=== PATIENT | male | born 1960 | race Caucasian/White ===

== ENCOUNTER 2017-06-25 14:54 | Inpatient (IN) | payer BC ==
[~2017-06-25] VITALS: Ht 167.6 cm; Wt 206.1 kg
--- NOTE | ~2017-06-25 | EKG ---
[facility] [address] [place], [place] [address] Draft EK completed, results pending confirmation PATIENT NAME: JOSEEMELY Electrocardiogram DATE OF : 62 PHYSICIAN: PRELIMINARY REPORT #: [id number] REPORT IS CONFIDENTIAL AND NOT TO BE RELEASED WITHOUT AUTHORIZATION
[~2017-06-25 14:54] MED LIST: AMLODIPINE BESY10 MG PO; ASPIRIN325 MG PO; AUGMENTIN 500-500 MG PO; CHONDROITIN SU100 G1 MC; CLARITIN10 MG PO; DOXAZOSIN MESYLA4 MG PO; ELIQUIS5 MG PO; FISH OIL500 MG PO; GARLIC1 EAC1 PO; GLUCOS-CHOND 51 EACH PO; KLOR-CON M2020 MEQ PO; LEVAQUIN500 MG PO; LIPITOR40 MG PO; LISINOPRIL-HCT1 EAC1 PO; LISINOPRIL10 MG PO; LISINOPRIL20 MG PO; METOPROLOL SUC200 MG PO; NORVASC10 MG PO; POTASSIUM CHLO20 ME1 PO; TOPROL XL50 MG PO; TORSEMIDE20 MG PO
--- NOTE | 2017-06-25 19:45 | NUR ---
PT FIFTED WITH TERRA AND 4 PERSON ASSIST TO SLIDE TO BARIATRIC BED. PT TOLERATED WELL. PT SHIFT REPORT RECIEVED. ALL QUESTIONS ANSWER. CALL LIGHT IN HAND. WILL CONTINUE TO MONITOR.
--- NOTE | 2017-06-25 20:15 | NUR ---
PT RESTING IN BED. PT ASSESSMENT COMPELTED. PT LUNGS CLEAR IN UPPER DIMINISED IN LOWER. PT ON 4L NC. PT TOLERATING WELL. RT IN TO SET UP HOME CPAP. PER RT HOME CPAP MACHINE IS NOT ADEQUATE TO USE DURING THE PTS STAY. PT WILL USE HOSPITAL PROVIDED CPAP MACHINE DURING HIS STAY. PT IS OKAY WITH THIS PLAN. PT SKIN IS VERY DRY ESPEACIALLY ON LEGS/ANKLES. SKIN IS DISCOLORED ON LEGS. PT SCROTUM ARE VERY SWOLLEN. PT IS ABLE TO URINATE WELL AT THIS TIME. PT IS ON A FLUID RESTRICTION AT THIS TIME.
--- NOTE | 2017-06-25 20:51 | NUR ---
ENTERED ROOM TO DISCUSS MEDICATION FOR TONIGHT. PT EDUCATION PROVIDED. PT WAS RELAXING IN BED ON PT HOME IPAD. WILL CONTINUE TO MONITOR.
--- NOTE | 2017-06-25 23:00 | NUR ---
PT CALLED TO USE URINAL. ASSISTED WITH URINAL WITH NO ISSUES. PT TOELRATED WELL. PT THEN PLACED ON CPAP MACHINE. PT EDUCATED TO CALL IF ANY ISSUES OR WHEN HE NEEDS TO URINATE AGAIN. NO OTHER ISSUES AT THIS TIME. CALL LIGHT IN REACH.
--- NOTE | 2017-06-26 02:00 | NUR ---
PT RESTING IN BED. LISTENED TO BREATH SOUNDS. NO CHANGES FROM PREVIOUS ASSESSMENT. PT USED URINAL WITH NO ISSUES. REPOSITIONED IN BED WITH LIFT. PT TOLERATED WELL. WILL CONTINUE TO MONITOR.
--- NOTE | 2017-06-26 04:00 | NUR ---
PT RESTING IN BED ON CPAP MACHINE. PT TOLERATING WELL. CALL LIGHT IN REACH. WILL CONTINUE TO MONITOR.
--- NOTE | 2017-06-26 06:55 | NUR ---
MD IN TO TALK WITH PT THIS AM. PT BACK TO SLEEP WITH CPAP AND CALL LIGHT IN REACH. WILL CONTINUE TO MONITOR.
--- NOTE | 2017-06-26 07:35 | NUR ---
PT DENIES PAIN AT THIS TIME, ALERT AND ORIENTED X4. PT READY TO ATTEMPT TO GET UP TO THE COMMODE.
--- NOTE | 2017-06-26 07:45 | NUR ---
PT AMBULATED TO BATHROOM WITH TWO PERSON ASSIST AND WALKER. PT SITTING ON TOILET, CALL LIGHT WITHIN REACH, NC O2 IN PLACE, PT STATES "I MIGHT NEED A LITTLE TIME". HR IN 100-110'S WITH ACTIVITY.
--- NOTE | 2017-06-26 08:05 | NUR ---
PT USED CALL LIGHT FOR ASSISTANCE, STOOD UP AND WINDOW REPAIRER CLEANED BACKSIDE, THEN PT STATES "I NEED TO GET BACK ON THE TOILET, I JUST CRAPPED A LITTLE". PT BACK ON TOILET WITH SMALL AMOUNT VIOLENT DIARRHEA. PT HAS CALL LIGHT WITHIN REACH, STATES "I'LL SIT HERE A LITTLE WHILE".
--- NOTE | 2017-06-26 09:11 | NUR ---
IV SITE INTACT, NO SWELLING OR REDNESS NOTED, PT DENIES PAIN WITH FLUSH, FLUSHES EASILY. PT HAS BREAKFAST TRAY. SITTING UP IN BED WATCHING TV AND EATING.
--- NOTE | 2017-06-26 10:03 | NUR ---
PT SITTING IN BED WATCHING TV AT THIS TIME, PT ABLE TO EAT 100% OF BREAKFAST. WOB HAS DECREASED.
--- NOTE | 2017-06-26 10:10 | NUR ---
NYSTOP POWDER APPLIED TO SKIN FOLDS, GROIN AREA, AND UNDER PANUS.
--- NOTE | 2017-06-26 10:20 | NUR ---
PT WASHED HANDS AND FACE WITH WARM WET WASH CLOTH. CLEANED PT GLASSES.
--- NOTE | 2017-06-26 10:28 | NUR ---
PT UP OUT OF BED AMBULATED TO TOILET WITH WALKER AND TWO PERSON ASSIST. PT HAVING VIOLENT LIQUID STOOL.
--- NOTE | 2017-06-26 10:47 | NUR ---
PT BACK TO BED, WOB INCREASED WITH ACTIVITY, PT AMBULATING BETTER THAN WHEN FIRST UP THIS MORNING. PT DENIES PAIN. PT HAS DIFFICULTY GETTING BACK INTO BED, TWO PERSON ASSIST WITH A STOOL. PT TESTICLE EDEMA INHIBITS MOBILITY.
--- NOTE | 2017-06-26 11:26 | NUR ---
PT VOIDED LARGE AMOUNT, MOST LEAKING AROUND URINAL.
--- NOTE | 2017-06-26 12:46 | NUR ---
IV SITE INTACT, NO REDNESS OR SWELLING NOTED AT SITE, PT DENIES PAIN WITH FLUSH, SITE FLUSHES EASILY. PT ALERT AND ORIENTED X4. PT DENIES NAUSEA AND PAIN IN GENERAL. PT STATES WOB IS STILL ELEVATED ABOVE BASELINE. PT STATES HIS FEET FEEL LESS SWOLLEN.
--- NOTE | 2017-06-26 14:26 | NUR ---
PT VOIDED USING URINAL, MODERATE AMOUNT OF LEAKING AROUND URINAL NOTED. PT ALSO GIVEN 2 GM PO IMODIUM FOR SIGNIFICANT LOOSE STOOL. PT DENIES PAIN AND NAUSEA AT THIS TIME.
--- NOTE | 2017-06-26 15:19 | NUR ---
SPOKE WITH PATIENT IN ROOM. PATIENT STATES HE PICKED UP HIS MEDICATIONS AT PHARMACY AND SOME WERE NOT REFILLED. THEY TOLD HIM HE NEEDED TO CONTACT THE PROVIDER TO REFILL. HE STATED IT WAS GOING INTO THE WEEKEND AND COULD NOT REACH THE DOCTOR. HE KNOWS NO BARRIERS TO RETURNING HOME ALONE TO APARTMENT. STATES HIS SISTER IS CLOSE-BY IF HE NEEDS HELP. WE DISCUSSED POSSIBLY HAVING CHW FROM CLINIC WORK WITH HIM TO HELP HIM NAVIGATE PHARMACY AND ANY SERVICES NEEDED. HE IS IN AGREEMENT WITH THIS. DISCUSSED STAFF CONCERN THAT HIS CPAP IS OLD AND HAS DUCT TAPE. HE STATES HIS REGULAR MACHINE QUIT WORKING AND THIS ONE IS AN OLDER ONE. DISCUSSED THAT HIS INSURANCE MOST LIKELY WILL REPLACE A MACHINE OLDER THAN 5 YEARS. HE STATES HE WOULD LIKE HELP WITH THIS, TOO. CALLED HIS PCP OFFICE AND SPOKE WITH BARTOLO OLVERA AT [facility]. WE DISCUSSED HIS CPAP ISSUES AND HIS MEDICATION ISSUES. SHE WILL COME SEE PATIENT IN THE ROOM AND START FOLLOW UP WITH HIM AT HOME AT DISCHARGE. SHE WILL ALSO SPEAK WITH DR REMY ABOUT ORDERS FOR IN-HOME MEDICAL REGARDING CPAP REPLACEMENT ISSUE. STAFF AND PATIENT UPDATED.
--- NOTE | 2017-06-26 17:18 | NUR ---
WENT IN ROOM TO ASSIST PATIENT WITH USING URINAL. PATIENT EXPERIENCED SUDDEN BOUT OF NAUSEA, PATIENT GIVEN SICK BAG AND NURSE WAS NOTIFIED.
--- NOTE | 2017-06-26 18:40 | NUR ---
PT C/O ABD CRAMPING AND DISCOMFORT. PT NOT ABLE TO EAT AND DINNER HE IS FEELING SLIGHTLY NAUSEATED. ZOFRAN GIVEN AT 1700. PT SAT UP AT SIDE OF BED, ABLE TO BELCH SEVERAL TIMES, STATES HE FEELS SOME RELIEF. PT AMBULATED TO THE TOILET WITH ASSISTANCE FROM WALKER AND STAND BY ASSIST. PT ABLE TO PASS LARGE AMOUNT OF FLATUS AND MODERATE AMOUNT OF LIQUID STOOL. PT STATES HE FEELS "MUCH BETTER". BED LINENS CHANGED, PT BACK TO BED, CALL LIGHT WITHIN REACH. PT ALERT AND ORIENTED X4.
--- NOTE | 2017-06-26 19:45 | NUR ---
PT REPORT RECIVED FROM DAY SHIFT RN. ALL QUESTIONS ANSWERED. PT RESTING IN BED AT THIS TIME. WILL CONTINUE TO MONITOR.
--- NOTE | 2017-06-26 20:30 | NUR ---
PT SHIFT ASSESSMENT COMPELTED. PT RESTING IN BED. LUNGS CLEAR AND DIMINISHED. PT CURRENTLY ON 5L NC. PT WILL USE CPAP TONIGHT. BOWEL TONES ACTIVE AT THSI TIME. WILL CONTINUE TO MONITOR.
--- NOTE | 2017-06-26 21:15 | NUR ---
PT FOLDS CLEANED AND RIED AND PLACED NYSTATIN WHERE APPLICABLE. PT TOLERATED WELL. 2 RNS IN TO ASIST WITH THIS TASK. NO OTHER ISSUES AT THIS TIME. CALL LIGHT IN REACH. WILL CONTINUE TO MONITOR.
--- NOTE | 2017-06-26 22:00 | NUR ---
ASSISTED PT WITH URINAL. UNABLE TO COLECT URINE IN CONTAINER. URINE SPILLED ONTO CHUCKS PAD. NO OTHER ISSUES AT THIS ITME. WILL CONTINUE TO MONTIOR.
--- NOTE | 2017-06-26 22:59 | NUR ---
IN TO ASSIST PT ADJUST IN BED. PT WAS ABLE TO ADJUST SELF IN BED WITH LITTLE NURSING STAFF ASSISTANCE. PT STATES HE FEELS BETTER THAN WHEN HE WAS ADMITTED AND LESS SOB. NO OTHER ISSUES AT THIS TIME WILL CONTINUE TO MONTIOR.
--- NOTE | 2017-06-27 00:20 | NUR ---
pt called to be placed on cpap machine. removed nc and placed on cpap. pt tolerated well. call light in hand. bed in lowest position. no other isues at this time. will continue to monitor.
--- NOTE | 2017-06-27 02:00 | NUR ---
PT RESTING IN BED ON CPAP AT THIS TIME. WILL CONTINUE TO MONITOR AT THIS TIME. PT OXYGEN 99% ON CPAP AT THIS ITME. CALL LIGHT IN HAND.
--- NOTE | 2017-06-27 04:00 | NUR ---
PT RESTING IN BED. CALL LIGHT IN HAND. BED IN LOWEST POSITION. WILL CONTINUE TO MONITOR.
--- NOTE | 2017-06-27 07:30 | NUR ---
BEDSIDE REPORT RECIEVED.
--- NOTE | 2017-06-27 07:50 | NUR ---
DR. MARES HERE TO SEE PATIENT. O2 DECREASED FROM 5 L TO 2.5 LITERS VIA NC. WILL CONTINUE TO MONITOR O2 SATS.
--- NOTE | 2017-06-27 08:00 | NUR ---
awake, ASSESSMENT DONE. DENIES PAIN. TALKED WITH PATIENT ABOUT PLAN OF CARE FOR DAY, IS UNDERSTANDING. SITTING UP IN BED FOR BREAKFAST, MEDS GIVEN.
--- NOTE | 2017-06-27 08:30 | NUR ---
TOOK BREAKFAST WELL.
--- NOTE | 2017-06-27 09:00 | NUR ---
NAPPING WITH CPAP ON. NO DISTRESS NOTED.
--- NOTE | 2017-06-27 10:45 | NUR ---
to shower via shower chair. QA ANALYST GIVING SHOWER.
--- NOTE | 2017-06-27 11:15 | NUR ---
TOLERAED SHOWER FAIR. RR-30'S. BACK TO BED WITH USE OF OVERHEAD LIFT. CPAP APPLIED.
--- NOTE | 2017-06-27 12:30 | NUR ---
TRANSFER ORDERS RECIEVED. WILL REMAIN IN ICU HOUSE CONVEN FOR NOW.
--- NOTE | 2017-06-27 15:10 | NUR ---
AMBULATED TO BR TO BRUSH TEETH AND SHAVE. TOLERATED AMBULATION WELL. THEN TO CHAIR. DENIES INCREASED SHORTNESS OF BREATH. O2 SAT UPON RETURN TO CHAIR 85%. O2 AT 3LNC AFTER RECOVERY PERIOD OF 1 MIN O2 SAT TO 92.
--- NOTE | 2017-06-27 15:30 | NUR ---
PHYS THERAPY HERE TO WORK WITH PATIENT. AMBULATED PATIENT IN HALLWAY FOR 6 MIN. O2 SAT TO 89%, HR TO 30'S. DENIES INCREASED SHORTNESS OF BREATH.
--- NOTE | 2017-06-27 16:15 | NUR ---
RESTFUL IN CHAIR.
--- NOTE | 2017-06-27 16:35 | NUR ---
RECIEVING AERSOL [place] ON . SPOT CHECK SAT=77-79. O2 AT 3 LITERS APPLIED. DENIES FEELING SHORT OF BREATH.
--- NOTE | 2017-06-27 16:40 | NUR ---
REPORT GIVEN TO MED SURG.
--- NOTE | 2017-06-27 16:50 | NUR ---
AMBULATED TO MED-SURG ROOM 111 FROM 127. IS SHORT OF BREATH WITH EXERTION, STATES THIS IS ABOUT THE SAME WHEN AT HOME.
--- NOTE | 2017-06-27 17:04 | NUR ---
PT ABLE TO AMBULATE LENGTH OF ADKINS FROM CCU TO 111. PT SOB, BUT STATES NO MORE THAN HE WAS RESTING. PT SITTING IN CHAIR. ABLE TO TALK AND ANSWER QUESTIONS WITHOUT DIFFICULTY.
--- NOTE | 2017-06-27 17:20 | NUR ---
DR. MARES AWARE OF U/O AND O2 SAT ON RA. NO FUTHER ORDERS AT THIS TIME.
--- NOTE | 2017-06-27 17:56 | NUR ---
PT TO FLOOR THIS AFTERNOON, ABLE TO AMBULATE DOWN ADKINS. EDEMA FROM UMBILICUS DOWN. 1800 FLUID RESTRICTION. UO QS. MISSESS HAT THOUGH. CPAP AT NIGHT. 3L NC.
--- NOTE | 2017-06-27 18:15 | NUR ---
PT IS SITTING UP IN CHAIR WITH CALL LIGHT IN REACH. PT ASKED FOR HIS FREE WATER, WAS GIVEN 300ML.
--- NOTE | 2017-06-27 19:05 | NUR ---
RECEIVED REPORT FROM RN. PATIENT DENIES NEEDS AT THIS TIME.
--- NOTE | 2017-06-27 20:18 | NUR ---
SHIFT ASSESSMENT DONE, EVENING MEDICATIONS GIVEN. PATIENT IS RESTING COMFORTABLY IN BED. BREATHING IS EVEN AND UNLABORED, CURRENTLY ON 3L O2 VIA NC. CALL LIGHT WITHIN REACH.
--- NOTE | 2017-06-27 21:44 | NUR ---
ASSISTED PATIENT TO THE BATHROOM AND BACK TO BED. USING WALKER. REFUSED TO TO ORAL CARE.
--- NOTE | 2017-06-27 23:30 | NUR ---
PATIENT PUT ON CPAP. HE DENIES OTHER NEEDS AT THIS TIME. CALL LIGHT WITHIN REACH.
--- NOTE | 2017-06-28 01:35 | NUR ---
PATIENT RESTING COMFORTABLY IN BED. BREATHING IS EVEN AND UNLABORED. CPAP ON, CALL LIGHT WITHIN REACH.
--- NOTE | 2017-06-28 02:23 | NUR ---
PATIENT AMBULATED TO THE BATHROOM WITH SBA/FWW. HE EXHIBITED EXERTIONAL TACHYPNEA, WHICH QUICKLY RESOLVED ONCE BACK IN BED. PATIENT IS NOW RESTING COMFORTABLY IN BED, CPAP ON, CALL LIGHT WITHIN REACH. BREATHING IS EVEN AND UNLABORED.
--- NOTE | 2017-06-28 04:49 | NUR ---
PATIENT IS RESTING COMFORTABLY IN BED. BREATHING IS EVEN AND UNLABORED ON CPAP. CALL LIGHT WITHIN REACH.
--- NOTE | 2017-06-28 05:13 | NUR ---
PATIENT'S NIGHT HAS BEEN UNEVENTFUL. HE HAS BEEN RESTING THROUGHOUT SHIFT. VSS, NO COMPLAINTS OF PAIN. PATIENT IS TOELRATING AMBULATION WITH A 1PA/FWW. THERE WERE NO ACUTE CHANGES FROM BEGINNING OF SHIFT ASSESSMENT.
--- NOTE | 2017-06-28 07:39 | NUR ---
REPORT RECIEVED FROM HUNTER IVEY. PT AWAKE IN BED. STATES HE HAD A GOOD NIGHT. PLACED BACK ON O2 AFTER TAKING OFF CPAP.
--- NOTE | 2017-06-28 10:50 | NUR ---
PT UP TO CHAIR. HR SPIKED TO 138 BUT QUICKLY RECOVERED UPON SITTING. NOW 103.
--- NOTE | 2017-06-28 15:35 | NUR ---
PT CONTINUES TO SIT IN CHAIR. HAS WORKED WITH PHYS. THER. X1 TODAY. TOLERATED WELL. PT DENIES PAIN OR CONCERNS.
--- NOTE | 2017-06-28 16:48 | NUR ---
PT UP TO RESTROOM. TOLERATED WELL ALTHOUGH FEELS HE HAS NOT LOST ANY WEIGHT IN HIS SCROTUM. WEIGHED EARLIER FOR 499.2. ON STANDING SCALE. HELPED BACK INTO BED. FEET DO APPEAR MORE SWOLLEN THIS AFTERNOON.
--- NOTE | 2017-06-28 18:38 | NUR ---
PT SAT IN CHAIR MOST OF DAY. STILL HAS +3 EDEMA ON LOWER HALF OF BODY. WEIGHED ON STANDING, 499.2, UP 7 POUNDS FROM 2 DAYS AGO. STILL SOB WITH AMBULATION. TELE #1.
--- NOTE | 2017-06-28 20:00 | NUR ---
RECEIVED REPORT AT 1900. PT WAS IN THE BATHROOM AT THAT TIME. I DID NOT GET TO MEET HIM.
--- NOTE | 2017-06-28 21:44 | NUR ---
ALL LOBES ARE CLEAR BUT DIMINISHED. PT IS NOT PUTTING MUCH EFFORT INTO DEEP BREATHS WHEN ASKED TO DO SO. SCROTAL EDEMA IS +4, OVERALL EDEMA IS +3 TO +4. V/S ARE WDL, HEART RHYTHM IS STILL IRREGULAR. PT DENIED PAIN AT TIME OF ASSESSMENT.
--- NOTE | 2017-06-29 00:32 | NUR ---
PT IS SLEEPING AT THIS TIME.
--- NOTE | 2017-06-29 03:00 | NUR ---
PT IS SLEEPING AT THIS TIME.
--- NOTE | 2017-06-29 05:31 | NUR ---
PT STARTED SHIFT WITH MILD TACHYCARDIA FROM 100-105 WHICH HAS SUBSIDED SINCE. ALL OTH V/S ARE WDL. PT HAS BEEN WITH A HR OF <100 FOR A FEW HOURS NOW. PT WORE C-PAP ALL NIGHT, I&O ARE WDL, ALL LOBES ARE CLEAR BUT DIMINISHED. PT HOWEVER DOES NOT PUT IN A LOT OF EFFORT WHEN DEEP BREATHING. PT IS STILL ON TELE #1. PT IS WALKING WELL CONSIDERING HIS WEIGHT AND EDEMA. PT DENIES PAIN FOR THIS SHIFT.PT SLEPT MOST OF THE NIGHT. PT SEEMS TO BE DOING WELL OVERALL. NO NEW ISSUES NOTED
--- NOTE | 2017-06-29 08:24 | NUR ---
PT UP TO RESTROOM WITH SBA AND FWW. PT HAS TROUBLE GETTING HIMSELF UP OUT OF SITTING POSITION AND HAS TO TRY SEVERAL TIMES. STATES HE HAS DONE THE SPLITS TRYING TO GET UP BEFORE. BRACED THE FWW WITH FOOT.
--- NOTE | 2017-06-29 08:30 | NUR ---
PT UP TO RESTROOM AND STUBBED TOE ON HIS WALKER ON WAY INTO BATHROOM. WAS BLEEDING SLIGHTLY. ASSESSED AND IT APPEARS TO BE A TORN CUTICLE ON THE INNER SIDE OF THIRD TOE. CLEANED AND PLACED BANDAID. PT DENIES PAIN OR DISCOMFORT.
--- NOTE | 2017-06-29 11:01 | NUR ---
PT UP TO RESTROOM SEVERAL TIMES. URINATES ON FLOOR EVERYTIME. CLEANED UP AND ADVISED TO BE CAREFUL.
--- NOTE | 2017-06-29 11:42 | NUR ---
PT TO RESTROOM AGAIN FOR LARGE QTY OF URINE. BLEEDING APPEARS STOPPED ON TOE AND PT DENIES DISCOMFORT FROM TOE.
--- NOTE | 2017-06-29 13:32 | NUR ---
PT WORKED WITH PHYS. THER. TOLERATED WELL ALTHOUGH COULD NOT DO STAIRS DUE TO ENLARGED SCROTUM AND INABILITY TO USE CANE. SOB INCREASED WITH AMBULATION. PT NOW ON 2L NC AND HOLDING SATS WELL. PT APOLOGIZED TO SECURITY REP FOR BEING CRANKY, STATES HE DOES NOT LIKE DOING IT, ESPECIALLY WHILE SWOLLEN.
--- NOTE | 2017-06-29 14:20 | NUR ---
SPOKE WITH PATIENT IN ROOM. DISCUSSED HIS POSSIBLY NEEDING OXYGEN AT DISCHARGE. HE STATES HE WANTS TO USE IN-HOME MEDICAL. HE ALSO ASKED ABOUT A WALKER. STATES HE DOESN'T HAVE ONE AT HOME. DISCUSSED THAT PT AND MD WILL DECIDE THAT BEFORE DISCHARGE, TOO. NO FURTHER QUESTIONS.
--- NOTE | 2017-06-29 16:09 | NUR ---
TOOK A SHOWER TODAY WASHED HAIR.
--- NOTE | 2017-06-29 17:02 | NUR ---
PT UP TO RESTROOM AGAIN. STATES THAT HIS SWELLING HAS GONE DOWN A LITTLE IN THE SCROTAL AREA. HAS URINATED A LARGE QTY TODAY VS YESTERDAY.
--- NOTE | 2017-06-29 19:10 | NUR ---
SHIFT REPORT RECIEVED. PATIENT RESTING IN BED WATCHING TV. DENIES NEEDS AT THIS TIME. CALL LIGHT IN REACH.
--- NOTE | 2017-06-29 21:15 | NUR ---
EVEING MEDS GIVEN PER ORDER. PATIENT UP TO THE BATHROOM, 1PA W/FWW. PATIENT TOLERATED WELL. PATIENT MAKE IN BED. KATHARINE CARE AND NYSTATIN POWDER APPLIED PER ORDERS. PATIENT DENIES PAIN. PULSE OX 93% ON 2L NC. TELE IN PLACE, HR 85 AT REST. PATIENT'S PANIS FOLDS ARE ONLY SLIGHTLY RED. HIS TESTICALS ARE BRIGHT RED, SHINEY, PAINFUL, AND VERY LARGE. PATIENT HAS DRANK ALL OF HIS 1800MLS OF FLUIDS FOR THE NIGHT. PATIENT RESTING IN BED. DENIES FURTHER NEEDS. CALL LIGHT IN REACH.
--- NOTE | 2017-06-29 23:24 | NUR ---
PATIENT RESTING IN BED. EYES CLOSED. RR 16. CPAP ON. PULSE OX 95%.
--- NOTE | 2017-06-30 03:24 | NUR ---
PATIENT REPORTS THAT CPAP CONTINUES TO ALARM. RT CALLED TO ASSESS. RT STATES THAT THE PATIENT IS NOT BREATHING DEEP ENOUGH OR OFTEN ENOUGH FOR THE LIMITS SET ON THE MACHINE. HE EXPLAINED THIS TO THE PATIENT. PULSE OX, 98% ON CPAP 2L. HOB ELEVATED. CALL LIGHT IN REACH.
--- NOTE | 2017-06-30 04:45 | NUR ---
PATIENT UP TO THE BATHROOM WITH ASSISTANCE FROM [employer]ER. ASSITED BACK TO BED. CPAP ON. CALL LIGHT IN REACH.
--- NOTE | 2017-06-30 05:16 | NUR ---
PATIENT RESTED OFF AND ON THROUGHOUT SHIFT. PATIENT ON PULSE OX, 2L NC DURING THE DAY AND CPAP AT NIGHT. PATIENT IS SBA W/FWW. CONTINUES TO HAVE SEVERE EDEMA. IV AL. CARDIAC DIET WITH 1800ML FLUID RESTRICTION. TOLERATING WELL. TELE #1. RECIEVED IV LASIX YESTERDAY, OUTPUT QS.
--- NOTE | 2017-06-30 06:33 | NUR ---
TELE BATTERY CHANGED. PATIENT RESTING IN BED. CPAP ON. PULSE OX, O2 97%. CALL LIGHT IN REACH.
--- NOTE | 2017-06-30 07:20 | NUR ---
BEDSIDE HANDOFF REPORT RECEIVED FROM MOVIE OPERATOR RN. PT SLEEPING, LEFT UNDISTURBED.
--- NOTE | 2017-06-30 08:00 | NUR ---
PT RESTING IN BED. PT ON ROOM AIR, REMOVED CPAP, O2 SATS 86-88%, PLACED ON 2L NC. LUNG SOUNDS CLEAR ON LEFT, RHONCHI NOTED TO RIGHT, DIMINISHED BASES, ENCOURAGED ACAPPELLA. PT TOLERATING CARDIAC DIET, FOLLOWING FLUID RESTRICTION, BOWEL TONES ACTIVE, DENIES NAUSEA. PT WITH 3+ EDEMA TO BLE AND SCROTUM. PT DENIES PAIN. PLAN TO SHOWER THIS MORNING. DISCUSSED PLAN OF CARE. PT DENIES OTHER NEEDS AT THIS TIME.
--- NOTE | 2017-06-30 08:30 | NUR ---
PT ASSISTED TO CHAIR FROM BATHROOM. PT WITH LARGE LOOSE BM, VOIDED. PT SOB WITH EXERTION. O2 SATS 80% UPON RETURNING TO CHAIR. PT INSTRUCTED TO KEEP OXYGEN IN PLACE WEHN AMBULATING TO BATHROOM.
--- NOTE | 2017-06-30 10:33 | NUR ---
MD TO BEDSIDE TO EVALUATE PT. PLAN TO CONTINUE RECEIVING IV LASIX AND MONITOR FLUID BALANCE. PT DENIES NEEDS AT THIS TIME.
--- NOTE | 2017-06-30 12:05 | NUR ---
PT ASSISED WITH USING URINAL. PT ASSISTED TO CHAIR FOR LUNCH. PT DENIES OTHER NEEDS AT THIS TIME.
--- NOTE | 2017-06-30 14:30 | NUR ---
PT UP TO BATHROOM, VOIDED. PT ASSISTED BACK TO BED. PT LUNG SOUNDS CLEAR WITH FINE CRACKLES TO RLL, ON 2L NC, CONTINUES TO BE SOB WITH EXERTION. EDEMA TO BLE SLIGHTLY IMPROVED. PT RESTING COMFORTABLY. PT DENIES OTHER NEEDS AT THIS TIME.
--- NOTE | 2017-06-30 15:44 | NUR ---
ASSISTED PATIENT WITH USING URINAL. OTHERWISE DOING WELL.
--- NOTE | 2017-06-30 16:45 | NUR ---
PT COMPLETED WORKING WITH OCCUPATIONAL THERAPY. PT RESTING IN BED. PT DENIES NEEDS AT THIS TIME.
--- NOTE | 2017-06-30 17:54 | NUR ---
PT ON 2L NC, DESATS QUICKLY ON ROOM AIR. PT RECEIVED 80 MG IV LASIX X2 TODAY, GOOD URINE OUTPUT. PT UP SBA WITH FWW. SL. PT CONTINUES TO HAVE 2-3+ EDEMA TO BLE AND SCROTUM. PT TOLERATING CARDIAC DIET WITH 1800 ML FLUID RESTRICTION. WORKED WITH PHYSICAL AND OCCUPATIONAL THERAPY. HAD BM TODAY.
--- NOTE | 2017-06-30 19:30 | NUR ---
PT RESTING IN BED. DENIES NEEDS AT THIS TIME, CALL VERMA IN REACH.
--- NOTE | 2017-06-30 19:53 | NUR ---
ASSISTED PT TO THE BATHROOM. PT VOIDING CLEAR, YELLOW. BACK TO BED, CALL VERMA IN REACH.
--- NOTE | 2017-06-30 22:45 | NUR ---
ASSISTED PT TO THE BATHROOM. REFILLED WATER PITCHER. PT BACK TO BED, APPLIED CPAP. PT DENIES FURTHER NEEDS. CALL VERMA IN REACH.
--- NOTE | 2017-07-01 00:30 | NUR ---
PT SLEEPING. CPAP IN PLACE. RT IN ASSESSING. CONT. PULSE OX IN PLACE. CALL VERMA IN REACH.
--- NOTE | 2017-07-01 02:06 | NUR ---
PT UP TO BATHROOM WITH ASSISTANCE. CPAP IN PLACE. CALL VERMA IN REACH.
--- NOTE | 2017-07-01 02:54 | NUR ---
I HAD TO WAKE PT UP TO GIVE HIS CARDIZEM. OBTAINED VS. TOILETING OFFERED. PT DENIES NEEDS. CPAP BACK IN PLACE. CALL VERMA IN REACH.
--- NOTE | 2017-07-01 04:50 | NUR ---
PT SLEEPING. CPAP IN PLACE. CALL VERMA IN REACH.
--- NOTE | 2017-07-01 06:50 | NUR ---
PT SLEEPING. CPAP IN PLACE. CONT PULSE OX AT 91%. CALL VERMA IN REACH.
--- NOTE | 2017-07-01 07:15 | NUR ---
BEDSIDE HANDOFF REPORT RECEIVED FROM CASE MANAGERS RN. PT SLEEPING LEFT UNDISTURBED.
--- NOTE | 2017-07-01 08:00 | NUR ---
PT RESTING IN BED. O2 SATS 92% ON CPAP, SWITCHED TO 2L NC. PT LUNG SOUNDS CLEAR WITH DIMINIHSED BASES, DENIES SOB. PT DENIES NAUSES, BOWEL TONES ACTIVE, TOLERATING CARDIAC DIET AND FLUID RESTRICTION. PT DENIES PAIN. PT CONTINUES TO HAVE EDEMA TO BLE AND SCROTUM, SLIGHTLY IMPROVED FROM YESTERDAY. CMS INTACT, PULSES PALPABLE. PT DENIES OTHER NEEDS AT THIS TIME. DISCUSSED PLAN OF CARE.
--- NOTE | 2017-07-01 08:46 | NUR ---
PT IS SITTING UP IN BED SAFELY WITH CALL LIGHT IN REACH, EATING HIS BREAKFAST. PT DID NOT NEED ANYTHING AT THE MOMENT
--- NOTE | 2017-07-01 10:00 | NUR ---
PT ASSISTED TO BATHROOM, SBA WITH FWW. PT NOW SITTING IN CHAIR. PT DENIES OTHER NEEDS AT THIS TIME.
--- NOTE | 2017-07-01 10:05 | NUR ---
PT IS SITTING UP IN CHAIR WITH FEET ELEVATED AND CALL LIGHT IN REACH. PT AGREED TO SHOWER, WILL RETURN TO DO SO AFTER ALL VITALS ARE COMPLETE
--- NOTE | 2017-07-01 11:32 | NUR ---
PT WAS SHOWERED WITH THE ASSISTNACE OF BOTH MYSELF AND THE NURSE GISELLE. PT BRUSHED TEETH. LINENS WERE CHANGED. PT IS NOW LYING IN BED WITH CALL LIGHT IN REACH. PT DID NOT NEED ANYTHING ELSE AT THE MOMENT.
--- NOTE | 2017-07-01 13:00 | NUR ---
MD TO BEDSIDE TO EVALUATE PT. PLAN TO CONTINUE WITH IV LASIX. PT ASSISTED TO BATHROOM AND TO CHAIR. PT DENIES NEEDS AT THIS TIME.
--- NOTE | 2017-07-01 13:11 | NUR ---
PT WORKING WITH PHYSICAL THERAPIST.
--- NOTE | 2017-07-01 13:45 | NUR ---
IV SITE OBTAINED TO [facility], 20G. IV LASIX GIVEN. RAC IV DISCONTINUED. PT DENIES OTHER NEEDS TA THIS TIME.
--- NOTE | 2017-07-01 13:53 | NUR ---
PT IS SITTING UP IN CHAIR WITH CALL LIGHT IN REACH. PT DID NOT NEED ANYTHING AT THE MOMENT
--- NOTE | 2017-07-01 18:08 | NUR ---
PT HAD UNEVENTFUL DAY. EDEMA IMPROVING. PT ON 2L NC, WEARS CPAP AT NIGHT. PT SBA TO BATHROOM WITH FWW. PT RECEIVING IV LASIX, DIURESING QS. TOLERATING CARDIAC DIET WITH FLUID RESTRICTION. NEW IV OBTAINED TO [facility].
--- NOTE | 2017-07-01 18:14 | NUR ---
PT IS RESTING IN BED WITH CALL LIGHT IN REACH. PT ASKED FOR HIS 300ML OF FREE WATER
--- NOTE | 2017-07-01 18:34 | NUR ---
PT ASSISTED TO RESTROOM, VOIDED. PT ASSISTED BACK TO BED. PT DENIES OTHER NEEDS AT THIS TIME.
--- NOTE | 2017-07-01 19:10 | NUR ---
BEDSIDE REPORT RECEIVED FROM OFFGOING RN. PT LYING IN BED. DENIES NEEDS AT THIS TIME. CALL LIGHT WITHIN REACH.
--- NOTE | 2017-07-01 21:17 | NUR ---
PT ASSESSMENT COMPLETE. PT DENIES PAIN, SOB, NAUSEA AT THIS TIME. WATER REFILLED, PT UNDERSTANDS THAT THIS IS ALL THE WATER HE CAN HAVE UNTIL 0600 PER FLUID RESTRICTION. PT STATES UNDERSTANDING. DENIES OTHER NEEDS AT THIS TIME. CALL LIGHT WITHIN REACH.
--- NOTE | 2017-07-01 22:30 | NUR ---
ASSISTED PATIENT TO THE BATHROOM AND BACK TO BED WITH WALKER. CALL LIGHT WITHIN REACH.
--- NOTE | 2017-07-01 23:05 | NUR ---
PT ASSISTED TO APPLY CPAP MASK. LIGHTS TURNED OUT. PT DENIES OTHER NEEDS AT THIS TIME. CALL LIGHT WITHIN REACH.
--- NOTE | 2017-07-02 02:59 | NUR ---
PT ASSESSMENT COMPLETE. PT DENIES PAIN, SOB. UP TO USE BATHROOM WITH 1 PA AND FWW, TOLERATED WELL. ASSESSMENT UNCHANGED FROM PREVIOUS ASSESSMENT. PT ASSISSTED TO PUT CPAP BACK IN PLACE. PT DENIES FURTHER NEEDS AT THIS TIME. CALL LIGHT WITHIN REACH.
--- NOTE | 2017-07-02 05:20 | NUR ---
UNEVENTFUL SHIFT, PT RESTING WELL. WORE CPAP APPROPRIATELY WHILE ASLEEP, O2 @ 2LPM WHILE AWAKE. SBA WITH FWW TO BATHROOM. UO QS, PT RECEIVING IV LASIX. EDEMA TO SCROTUM, AND BLE'S CONTINUES. CARDIAC DIET, 1800 ML FLUID RESTRICTIONL; PT TOLERATING WELL. IV SL.
--- NOTE | 2017-07-02 07:00 | NUR ---
BEDSIDE HANDOFF REPORT RECEIVED FROM ANALYTICAL TECH RN. PT SLEEPING, CPAP ON, LEFT UNDISTURBED.
--- NOTE | 2017-07-02 08:40 | NUR ---
PT SITTING IN CHAIR. PT ON 2L NC, O2 SATS 87%, INCREASED TO 3L. PT STATES HE FEELS LESS SOB, BETTER THAN YESTERDAY. EDEMA TO BLE AND SCROTUM IMPROVING, LEGS 2+. PT TOLERATING CARDIAC DIET, FOLLOWING FLUID RESTRCTION. SL, IV LASIX GIVEN. DISCUSSED PLAN OF CARE. PLAN FOR SHOWER AND NYSTATIN POWDER. PT DENIES NEEDS AT THIS TIME.
--- NOTE | 2017-07-02 09:46 | NUR ---
Patient was in chair and watching tv, he needed no assistance and I told him to call if he needs anything at all.
--- NOTE | 2017-07-02 12:15 | NUR ---
PT ASSISTED WITH SHOWER. PT ASSISTED BACK TO BED. NYSTATIN POWDER APPLIED TO SKIN FOLDS. HYDROCORTISONE CREAM APPLIED TO BLE. PT EATING LUNCH. PT DENIES OTHER NEEDS AT THIS TIME.
--- NOTE | 2017-07-02 12:16 | NUR ---
PATIENT HAD A SHOWER I ASSISTED THE NURSE WITH THE SHOWER AND PUTTING POWDERS ON.
--- NOTE | 2017-07-02 14:12 | NUR ---
patients tele was d/c'd
--- NOTE | 2017-07-02 18:18 | NUR ---
PT HAD IMPROVEMENT WITH EDEMA TODAY. WEANED TO 1L NC, LUNG SOUNDS CLEAR WITH FINE CRACKLES TO RIGHT LOWER LOBE. PT RECEIVED IV LASIX X2, DIURESED WELL, LESS THAN PREVIOUS DAYS. TOLERATING CARDIAC DIET WITH 1800 ML FLUID RESTRICTION. PT WORKED WITH PHYSICAL THERAPY, ABLE TO AMBULATE WITH CANE. PT HAD BM TODAY. POSSIBLE DISCHARGE TOMORROW PENDING FLUID BALANCE.
--- NOTE | 2017-07-02 19:15 | NUR ---
BEDSIDE REPORT RECEIVED FROM OFFGOING RN. PT LYING IN BED. DENIES NEEDS AT THIS TIME. CALL LIGHT WITHIN REACH.
--- NOTE | 2017-07-02 19:54 | NUR ---
ASSISTED PATIENT TO THE BATHROOM AND BACK TO BED.
--- NOTE | 2017-07-02 20:16 | NUR ---
NURSE NOTIFIED RE BP.
--- NOTE | 2017-07-02 21:21 | NUR ---
PT ASSESSMENT COMPLETE. PT DENIES PAIN, SOB, OR NAUSEA. PT DENIES NEEDS AT THIS TIME. CALL LIGHT WITHIN REACH.
--- NOTE | 2017-07-02 23:12 | NUR ---
ASSISTED PATIENT TO THE BATHROOM. PATIENT VOIDS SOME ON THE FLOOR ON THE WAY TO THE BATHROOM AND BACK TO BED. CLEANED/WIPED THE FLOOR WITH SANI WIPES.
--- NOTE | 2017-07-02 23:36 | NUR ---
PT RESTING IN BED WITH EYES CLOSED. RESPIRATIONS EVEN AND UNLABORED. CPAP IN PLACE APPROPRIATELY. CALL LIGHT WITHIN REACH.
--- NOTE | 2017-07-03 02:34 | NUR ---
PT RESTING IN BED WITH EYES CLOSED, WAKES EASILY. PT ASSESSMENT COMPLETE. PT DENIES PAIN, NAUSEA, SOB. ASSESSMENT UNCHANGED FROM PREVIOUS. CPAP IN PLACE APPROPRIATELY. PT AGREES TO UTILIZE CALL LIGHT FOR NEEDS.
--- NOTE | 2017-07-03 05:08 | NUR ---
UNEVENTFUL SHIFT. O2 @ 1LPM DURING THE DAY, CPAP @ NIGHT. FINE CRACKLES TO RLL. EDEMA PRESENT FROM GROIN TO BILATERAL FEET; IMPROVING WITH IV LASIX. 1 PA WITH FWW/CANE. CARDIAC DIET AND 1800 ML FLUID RESTRICTION. IV SL.
--- NOTE | 2017-07-03 07:44 | NUR ---
PT RESTING QUIETLY IN BED. CPAP IN PLACE. DAILY WEIGHT SIGN PLACED ON DOOR. SALINE LOCKED. CONTINUOUS PULSE OX IN PLACE. NO COMPLAINTS.
--- NOTE | 2017-07-03 10:55 | NUR ---
HELPED PT TO RESTROOM AND GOT HIM BACK INTO BED, CALL LIGHT IN PLACE
--- NOTE | 2017-07-03 11:49 | NUR ---
PT LAYING IN BED. MENTIONED THAT HE IS FEELING MUCH BETTER. SEEMED HE MORE AWARE TODAY. HE THANKED ME FOR STOPPING BY. WILL CONTINUE TO FOLLOW. I EXTENDED A BLESSING TO HIM
--- NOTE | 2017-07-03 12:13 | NUR ---
PT HAD ECHO THIS MORNING. URINE OUTPUT DOING WELL. FOLLOWING FLUID RESTRICTION.
[2017-07-03] MEDS ORDERED: ELIQUIS5 MG PO ×2 (13:13→13:18)
[2017-07-03] MEDS ORDERED: KLOR-CON M2020 MEQ PO (13:14)
[2017-07-03] MEDS ORDERED: DILTIAZEM 24HR120 MG PO (13:14)
[2017-07-03] MEDS ORDERED: TORSEMIDE20 MG PO (13:15)
[2017-07-03] MEDS ORDERED: MAG-OXIDE400 MG PO (13:16)
[2017-07-03] MEDS ORDERED: NYSTOP60 GM TOP (13:17)
[2017-07-03] MEDS ORDERED: LISINOPRIL10 MG PO (13:17)
[2017-07-03] MEDS ORDERED: METOPROLOL SUC200 MG PO ×2 (13:18→13:22)
--- NOTE | 2017-07-03 16:34 | NUR ---
FAXED CHART NOTES TO [facility], INCLUDING FACESHEET, ORDERS, RT QUALIFIER, ER NOTES, H AND P, DC SUMMARY. CALLED IN HOME AND SPOKE WITH SHERRI ABOUT THIS PT SHE STATED SHE WILL HAVE THE ROLLER CALL AND TALK TO THE PT. I TALKED TO THE PT PREVIOUS TO DC AND HE STATED HE NO LONGER FEELS LIKE HE NEEDED A WALKER SO ONE WAS NOT ORDERED FOR HIM. ALSO FAXED CHART NOTES TO HOME HEALTH FOR RN CARE FOR MED COMPLIANCE. INCLUDING FACESHEET, ORDERS, ER NOTES, H AND P, DC SUMMARY AND PACKET.
== END 2017-07-03 16:00 | disposition home or self-care (01) | DRG 291 ==
LOC: ED 14:54 → CCU 17:26 → MS 06-27 16:50
PROVIDERS: ADMIT Internal Medicine
PROC: 3E0234Z Introduction of Serum, Toxoid and Vaccine into Muscle, Percutaneous Approach (ICD-10-PCS; principal; 2017-06-26)
DX: I11.0 Hypertensive heart disease with heart failure (principal); J96.01 Acute respiratory failure with hypoxia; E66.2 Morbid (severe) obesity with alveolar hypoventilation; Z68.45 Body mass index [BMI] 70 or greater, adult; B37.89 Other sites of candidiasis; I48.91 Unspecified atrial fibrillation; Z79.01 Long term (current) use of anticoagulants; G47.33 Obstructive sleep apnea (adult) (pediatric); I87.2 Venous insufficiency (chronic) (peripheral); Z91.14 Patient's other noncompliance with medication regimen; I50.33 Acute on chronic diastolic (congestive) heart failure; Z23 Encounter for immunization
CPT/HCPCS: 36415; 71010; 80048; 80053; 80069; 83735; 83880; 84484; 85025; 90674; 93005; 93010; 93306; 94640; 94660; 94761; 94762; 96374; 96375; 97110; 97116; 97161; 97530; 99285; G0008; J2405; Q9957

== ENCOUNTER 2017-11-04 15:42 | Emergency (ER) | payer BC ==
[~2017-11-04] VITALS: Ht 165.1 cm; Wt 204.3 kg
[~2017-11-04 15:42] MED LIST changes: +DILTIAZEM 24HR120 MG PO; +MAG-OXIDE400 MG PO; +NYSTOP60 GM TOP
[2017-11-04] MEDS ORDERED: MECLIZINE HCL25 MG PO (18:38)
--- NOTE | 2017-11-06 00:01 | EKG ---
[facility] [address] [facility] [place] [address] Signed Atrial fibrillation Right bundle branch block T wave abnormality, consider inferolateral ischemia Abnormal ECG When compared with ECG of 25-JUN-2017 15:17, T wave inversion more evident in Inferior leads T wave inversion less evident in Lateral leads Confirmed by FLORENTIN ALVARADO MD ([id number]) on 11/06/2017 12:01:09 AM Electronically Signed By: FLORENTIN ALVARADO MD 11/06/17 0001 PATIENT NAME: JOSEEMELY YECENIA Electrocardiogram DATE OF : 62 PHYSICIAN: FLORENTIN ALVARADO MD REPORT #: [id number] REPORT IS CONFIDENTIAL AND NOT TO BE RELEASED WITHOUT AUTHORIZATION
== END 2017-11-04 19:11 | disposition home or self-care (01) ==
LOC: ED 15:42
DX: H83.09 Labyrinthitis, unspecified ear (principal); I10 Essential (primary) hypertension; E66.01 Morbid (severe) obesity due to excess calories; I48.91 Unspecified atrial fibrillation; Z88.7 Allergy status to serum and vaccine; Z79.899 Other long term (current) drug therapy
CPT/HCPCS: 80053; 81001; 82550; 82553; 83874; 83880; 84484; 85025; 93005; 93010; 96361; 96365; 99284; J7120

== ENCOUNTER 2018-04-21 16:00 | Inpatient (IN) | payer BC ==
[~2018-04-21] VITALS: Ht 165.1 cm; Wt 199.2 kg
[~2018-04-21 16:00] MED LIST changes: +MECLIZINE HCL25 MG PO
--- NOTE | 2018-04-21 20:45 | NUR ---
PT ARRIVED TO CCU ROOM 130 WITH ED NURSE. PT ABLE TO TRANSFER FROM STRETCHER TO BED BY SLIDING OVER ON HIS OWN. PT IS ON BARIATRIC BED. PT ASSESSMENT COMPELTED. PT BREATH SOUNDS ARE CLEAR IN UPPER AND DIMINISHED IN LOWER. PT IS WEARING 2L NC. PER PT HER WEARS O2 VIA NC AT HOME NEEDED 1-2L. PT USES CPAP AT NIGHT. PT DID NOT BRING CPAP. PT BOWEL TONES HYPOACTIVE. PT STATES HE HAD BM YESTERDAY. LEGS NOTED TO HAVE EDEMA 2+ AND DARK SKIN NOTED ON BILAT SHINS. PT HAS VERY SWOLLEN SCROTUM AND ARE RED AND TENDER. PT HR ON ARRIVAL IS 90-110. WILL CONTINUE TO CLOSELY MONITOR.
[2018-04-21] MEDS ORDERED: MAGOX 400400 MG PO (20:50)
[2018-04-21] MEDS ORDERED: CARTIA XT120 MG PO (20:50)
[2018-04-21] MEDS ORDERED: METOLAZONE5 MG PO (20:50)
--- NOTE | 2018-04-21 22:00 | NUR ---
PT RECEIVED LASIX IN ED AND PT IS HAVING GOOD URINE OUTPUT. PT IS ABLE TO USE URINAL WITH ASSISTANCE. ICE WATER AT BEDSIDE. PT ON 1600ML FLUID RESTRICTION. PT CALLS APPROPRIATELY.
--- NOTE | 2018-04-22 00:23 | NUR ---
PT CALLED TO USE URINAL. PT ASSESSMENT COMPLETED. PT READY FOR BED AND PLACED ON CPAP. PT DENIES ANY OTHER NEEDS AT [facility] TIME. CALL LIGHTIN REACH. WILL CONTINUE TO CLOSELY MONITOR.
--- NOTE | 2018-04-22 02:00 | NUR ---
PT RESTING IN BED. PT CALLS APPROPRAITELY. PT USING URINAL IN BED. PT RECEIVED LASIX IN ED AND IS RESPONDING WELL TO TREATMENT. PT HAS BEEN WEARING THE CPAP WITH NO ISSUES. WILL CONTINUE TO CLOSELY MONITOR.
--- NOTE | 2018-04-22 04:00 | NUR ---
PT ASSESSMENT REMAINS UNCHANGED. PT RESTING AT THIS TIME ON CPAP. WILL CONTINUE TO CLOSELY MONITOR.
--- NOTE | 2018-04-22 06:19 | NUR ---
COURT ASSISTANT IN TO DRAW MORNING LABS. PT RESTING IN BED. PT ABLE TO USE URINAL WITH ASSIST. PT HR HAS BEEN WELL CONTROLLED SINCE ADMISSION. PT CALLS APPROPRIATELY. WILL CONTINUE TO CLOSELY MONITOR.
--- NOTE | 2018-04-22 09:14 | NUR ---
PT SCROTUM AND PANNUS CLEANED, NYSTATIN APPLIED TO FOLDS. PERICARE PROVIDED AT THIS TIME. BARRIER CREAM APPLIED TO SCROTUM AND ELEVATED. PT PLEASANT AND COOPERATIVE.
--- NOTE | 2018-04-22 12:51 | NUR ---
PT UP IN CHAIR AT THIS TIME, TOLERATING WELL. PT ABLE TO STAND WITH CANE AND RN STAND-BY FOR STANDING WEIGHT.
--- NOTE | 2018-04-22 14:57 | NUR ---
PT RESTING COMFORTANLY IN CHIAIR. NO ACUTE CHANGES. DENIES OTHER NEEDS AT THIS TIME. CALL LIGHT WITHIN REACH.
--- NOTE | 2018-04-22 17:32 | NUR ---
PT BACK TO BED, AMBULATED WELL, TOLERATED MOVEMENT WELL. PT HR INCREASED TO 120 BPM WITH AMBULATION AND RETURNED TO 100 BPM ONCE SITTING IN BED. SCROTUM WEEPING, CLEANED AND APPLIED A&D OINTMENT, NYSTATIN CREAM AND POWDER. PT TOLERATED WELL.
--- NOTE | 2018-04-22 19:15 | NUR ---
BEDSIDE REPORT RECEIVED FROM OFFGOING RN. PT RESTING IN BED AWAKE. DENIES NEEDS AT THIS TIME. CALL LIGHT WITHIN REACH.
--- NOTE | 2018-04-22 19:50 | EKG ---
[facility] [address] [facility] [place] [address] Signed Atrial fibrillation with rapid ventricular response Right bundle branch block T wave abnormality, consider inferolateral ischemia Abnormal ECG When compared with ECG of 04-NOV-2017 16:00, No significant change was found Confirmed by FLORENTIN ALVARADO MD ([id number]) on 04/22/2018 7:49:44 PM Electronically Signed By: FLORENTIN ALVARADO MD 04/22/18 1950 PATIENT NAME: EMELY GARCIA Electrocardiogram DATE OF : 62 PHYSICIAN: FLORENTIN ALVARADO MD REPORT #: [id number] REPORT IS CONFIDENTIAL AND NOT TO BE RELEASED WITHOUT AUTHORIZATION
--- NOTE | 2018-04-22 19:50 | NUR ---
ROUNDED CHARGE. PATIENT DENIES ANY COMMENTS, QUESTIONS, OR CONCERNS. NO NEEDS NOTED. CALL LIGHT IN REACH.
--- NOTE | 2018-04-22 20:56 | NUR ---
PT DENIES PAIN, NAUSEA, SOB. PT ASSESSMENT COMPLETE. PT ASSISTED TO VOID IN URINAL, REQUIRES SOMEONE TO HOLD URINAL TO SCROTUM. SCHEDULED MEDICATIONS ADIMINISTERED. PT DENIES WANTING TO WEAR CPAP AT THIS TIME. PT LYING WATCHING TV. DENIES FURTHER NEEDS AT THIS TIME. CALL LIGHT WITHIN REACH.
--- NOTE | 2018-04-22 23:14 | NUR ---
VITAL SIGNS AND I&O DONE AND CHARTED. PATIENT DENIES ANY NEED AT THE MOMENT. CHECKED SIDE TABLE AND CALL LIGHT WITHIN REACH.
--- NOTE | 2018-04-22 23:15 | NUR ---
PT RESTING IN BED WATCHING TV. PT STATES THAT HE WOULD LIKE TO USE THE URINAL, BUSINESS OWNER/ENGINEER TO ASSIST.
--- NOTE | 2018-04-22 23:37 | NUR ---
HELPED PATIENT USE THE URINAL.
--- NOTE | 2018-04-23 00:30 | NUR ---
PT UTILIZES CALL LIGHT, ASKS FOR CPAP TO BE PLACED FOR THE NIGHT. RT CALLED TO ASSIST PT.
--- NOTE | 2018-04-23 02:49 | NUR ---
PT USES CALL LIGHT REQUESTS TO USE URINAL, ASSISTANCE PROVIDED. PT ASSESSMENT COMPLETE. PT DENIES PAIN, NAUESA, SOB. ASSESSMENT UNCHANGED FROM PRIOR. PT ABLE TO PUT CPAP MASK BACK ON INDEPENDENTLY. PT DENIES OTHER NEEDS AT THIS TIME. CALL LIGHT WITHIN REACH.
--- NOTE | 2018-04-23 11:00 | NUR ---
SPOKE WITH PATIENT IN ROOM. PATIENT STATES HE STILL LIVES AT HOME ALONE. STATES HE USES A CANE FOR HELP WITH AMBULATION. PATIENT STATES ITS BEEN A FEW MONTHS SINCE HE SAW DR REMY. STATES HIS MOTHER SEVERAL MONTHS AGO AND HE HAS BEEN STRUGGLING WITH DEPRESSION. PATIENT AGREES THIS IS PROBABLY DUE TO GRIEF. WE DISCUSSED THAT THERE ARE RESOURCES AVAILABLE IN THE COMMUNITY FOR GRIEF SUPPORT. HE IS INTERESTED IN THIS. HE STATES HE THOUGHT ABOUT ASKING DOCTOR FOR ANTI-DEPRESSANT. WE DISCUSSED THAT HE WILL NEED TO FOLLOW-UP WITH PCP AFTER HOSPITALIZATION. ALSO DISCUSSED I CAN HAVE A CHW FROM HIS CLINIC FOLLOW WITH HIM TO MAKE SURE HE HAS WHAT HE NEEDS AT HOME. HE IS AGREEABLE TO THIS.
--- NOTE | 2018-04-23 11:38 | NUR ---
AMBULATED HALLS WITH PHYSICAL THERAPY. CCU REPORTED HEART RATE 170s. SAT PATIENT IN WHEELCHAIR AND TRANSFERRED BACK TO ROOM. IN RECLINER NOW. TOLERATED AMBULATION FAIRLY WELL. NO DIZZINESS. 2L 02 VIA NC. 92% SATURATION WHILE AMBULATING. FRIEND VISITING PATIENT NOW. HAD LEAKAGE OF URINE AND MIXED WHITE DRAINAGE WHILE WALKING. REPORTED FINDINGS TO HOSPITALIST. BP TAKEN PER MD REQUEST. REPORTED TO MD. NEW ORDER FOR QUYEN.
--- NOTE | 2018-04-23 12:36 | NUR ---
SENT REFERRAL TO HOSPITAL HANDICRAFTS TEACHER THROUGH [facility]. CALLED AND DISCUSSED WITH MEDICAL BILLING AND CODING INSTRUCTOR OF THIS DEPARTMENT ALSO. FAX CONFIRMATION RECEIVED FROM REFERRAL.
--- NOTE | 2018-04-23 13:35 | NUR ---
PT HAD FRIEND WANTING TO VISIT-PT WAS WITH P.T. STAFF AND RN MAGDY. I HAD FRIEND WAIT JUST A MOMENT AND THEN ESCORTED HIM INTO PT'S RM. WILL FOLLOW NEEDED
[2018-04-23] MEDS ORDERED: CLARITIN10 MG PO (13:47)
--- NOTE | 2018-04-23 13:47 | NUR ---
MED REC COMPLETE
--- NOTE | 2018-04-23 13:58 | NUR ---
PATIENT WAS SEEN BY HOSPITAL PACKAGE CENTER SUPERVISOR. GRIEF SUPPORT INFORMATION GIVEN. PROGRESS NOTE FROM PACKAGE CENTER SUPERVISOR PLACED TO CHART.
--- NOTE | 2018-04-23 15:56 | NUR ---
CREAM APPLIED TO SCROTUM. RED, SWOLLEN AND TENDER. ELEVATED WITH PILLOW CASES ROLLED UNDER SCROTUM.
--- NOTE | 2018-04-23 18:38 | NUR ---
WORKED WITH PHYSICAL THERAPY TODAY. AMBULATED IN HALLS, BUT HR INCREASED TO 170s. USED WHEELCHAIR TO TRANSFER TO CHAIR AFTER AMBULATION. INCONTINENT OF URINE AT TIMES. MORBIDLY OBESE. BARIATRIC BED AND CHAIR. CPAP AT NIGHT. 2L 02 VIA NC DURING DAY. LASIX BID. CARDIZEM ADDED TO REGIMEN D/T INCREASED HEART RATE. TELE 8. DAILY WEIGHT: 469.5#. 2PA FWW. SALINE LOCKED. CARDIAC DIET. 1600ML FLUID RESTRICTION.
--- NOTE | 2018-04-23 19:05 | NUR ---
RECEIVED REPORT FROM DAY SHIFT RN. PATIENT IS RESTING IN BED PLAYING ON TABLET. PATIENT DENIES ANY NEEDS. CALL LIGHT IN REACH.
--- NOTE | 2018-04-23 21:25 | NUR ---
PATIENT ASSESMENT COMPLETED. PATIENTS EVENING MEDICATIONS GIVEN PER ORDER. PATIENT COMPLAINS OF DISCOMFORT IN HIS SCROTAL AREA. PATIENT DENIES THE NEED FOR ANYTHING FOR IT. YOLY IS NOT READY TO TO HAVE HIS CPAP ON AT THIS TIME. WILL CALL WHEN HE IS READY. NO FURTHER NEEDS NOTED. CALL LIGHT IN REACH.
--- NOTE | 2018-04-23 23:55 | NUR ---
PATIENT ASSISTED TO THE USE THE URINAL BY THE PHARMACEUTICAL DETAILER. PATIENTS SCROTAL AREA CLEANED, DRIED, AND CREAM AND POWDER APPLIED PER ORDER. PATIENT TOLERATED ACTIVITY WELL. NO FURTHER NEEDS NOTED. CALL LIGHT IN REACH.
--- NOTE | 2018-04-23 23:59 | NUR ---
ASSISTED HUNTER LEO CLEANED PATIENT'S LOWER ABDOMEN/GROIN/ SCROTAL AREA AND APPLIED CREAM/POWDER.
--- NOTE | 2018-04-24 00:05 | NUR ---
HELPED USE THE URINAL.
--- NOTE | 2018-04-24 00:49 | NUR ---
PATIENTS VITALS TAKEN BY ECONOMICS PROFESSOR. PATIENTS MEDICATIONS GIVEN PER ORDER. PATIENT REMAINS ON TLE #8, HR 91. NO NEEDS NOTED. CALL LIGHT IN REACH.
--- NOTE | 2018-04-24 02:19 | NUR ---
RT PLACED PATIENT ON CPAP. PATIENT IS NOW RESTING IN BED WITH CPAP IN PLACE. CALL LIGHT IN REACH.
--- NOTE | 2018-04-24 04:22 | NUR ---
PATIENT IS RESTING IN BED WITH EYES CLOSED. PATIENT IS WEARING CPAP, BREATHING IS EVEN AND UNLABORED. CALL LIGHT IN REACH.
--- NOTE | 2018-04-24 04:58 | NUR ---
PATIENT ASSISTED IN USING URINAL. PATIENT WAS ABLE TO VOID. PATIENTS DAILY WEIGHT TAKEN AND RECORDED. PATIENT IS OFF CPAP AND ON 2L VIA NC. PATIENT IS BACK IN BED RESTING. PATIENTS SCROTAL AND PANUS AREA CLEANED AND DRIED. PATIENT TOLERATED ALL ACTIVITY WELL. NO FURTHER NEEDS NOTED. CALL LIGHT IN REACH.
--- NOTE | 2018-04-24 05:04 | NUR ---
PATIENT RESTED WELL FOR THE LATER PART OF THE SHIFT. PATIENT IS ON A CARDIAC DIET AND 1600ML FLUID RESTRICTION. PATIENT IS ON 2L VIA NC. PATIENT WORE CPAP WHILE ASLEEP. PATIENT USES URINAL IN BED. PATIENTS OUPUT IS QS. PATIENT IS A 2PA W/FWW. PATIENT IS ON TELE #8 AND IS IN AN IRREGULAR RHYTHM. PATIENT IS A DAILY WEIGHT.
--- NOTE | 2018-04-24 06:29 | NUR ---
PATIENTS VITALS TAKEN AND RECORDED BY SLUBBER TENDER. PATIENTS MORNING MEDICATIONS GIVEN PER ORDER. PATIENT DENIES ANY NEEDS AT THIS TIME. CALL LIGHT IN REACH.
--- NOTE | 2018-04-24 09:34 | NUR ---
CALLED DAYSURGERY SPOKE WITH KATE HARRISON TO NOTIFY OF CONSULT ORDER FOR CLINICAL ORTHOPTIST PLACED ON April
--- NOTE | 2018-04-24 10:18 | NUR ---
BEDSIDE REPORT RECEIVED FROM AHMET HARRISON AT 0720. WHITE BOARD UPDATED. PATIENT AWAKE. IV FOUND TO BE INFILTRATED DURING MED ADMINISTRATION. LASIX HELD UNTIL NEW IV PLACED BY NASIMA HARRISON AT 1015. LASIX IVP NOW. PATIENT LYING IN BED. PLANS TO WORK WITH PHYSICAL THERAPY TODAY. 2L [address]
--- NOTE | 2018-04-24 12:16 | NUR ---
NICOLA NORIEGA AND DANTE SHOWERED PATIENT. BACK TO BED NOW. PILLOWCASES, CREAMS, AND NYSTATIN POWDER APPLIED TO SCROTUM AND SKIN FOLDS. AXILLA, PANNUS, AND BETWEEN THIGHS ARE RED AND EXCORIATED IN SOME AREAS. PATIENT EATING LUNCH NOW. CALL LIGHT WITHIN REACH. 2L [address]
--- NOTE | 2018-04-24 13:10 | NUR ---
PATIENT ATTEMPT TO WALK TO SHOWER WITH 2 PERSON ASSIST FWW. PATIENT STATED THAT BOTH ANKLES FELT BRUISED, HE ALSO STATED "IT JUST FEELS WEIRD, NOT NORMAL".SHOWER CHAIR BROUGHT TO THE PATIENT. PATIENT WAS WHEELED INTO SHOWER WITH 2 PERSON ASSIST. SHOWER COMPLETED AND PATIENT BACK TO BED FROM CHAIR NEXT TO BED WITH 3 PERSON ASSIST. 2 RN'S IN ROOM WITH PATIENT TO APPLY MEDICATIONS. NO OTHER NEEDS AT THIS TIME.
--- NOTE | 2018-04-24 14:38 | NUR ---
PT RESTING IN BED, ACKNOWLEDGED THAT HE HAS HAD A BUSY DAY. THIS ADMISSION SEEMS TO HAVE PT SOMEWHAT FRIGHTENED, AND SHOWED SOME EMOTION THAT HE HAS NOT FELT COMFORTABLE TO RELEASE WTH ME BEFORE. DEBRIEFED SOME, PT MENTIONED THAT HE HAD A QUESTION FOR DR ALVARADO REGARDING A NEW HEART MED. PASSED ON TO HIS RN MAGDY. SHE WILL FOLLOW UP. EXTENDED A BLESSING, WILL FOLLOW NEEDED
--- NOTE | 2018-04-24 18:51 | NUR ---
WOUND CARE NURSE CONSULTED TODAY. CONTINUE CURRENT WOUND CARE REGIMEN. 2PA FWW. TELE 8. DAILY WEIGHT. SCROTAL SWELLING IMROVING. PILLOW CASES TO FOLDS TO DECREASE EXCORIATION/MOISTURE. CPAP WITH SLEEP. 2L 02 VIA IN.
--- NOTE | 2018-04-24 19:55 | NUR ---
RECEIVED REPORT FROM DAY SHIFT RN. PATIENT IS RESTING IN BED WATCHING TV. NO NEEDS NOTED. CALL LIGHT IN REACH.
--- NOTE | 2018-04-24 21:20 | NUR ---
PATIENT ASSESMENT COMPLETED. PATIENT IS RESTING IN BED WATCHING TV. PATIENTS EVENING MEDICATIONS GIVEN PER ORDER. PATIENT REMAINS ON 2L VIA NC. PATIENT IS ON TELE #8, HR 88. PATIENT DENIES ANY PAIN. PATIENTS SCROTAL AREA AND CLEANED, NYSTATIN PLACED PER ORDER. PATIENT DENIES ANY FURTHER NEEDS. CALL LIGHT IN REACH.
--- NOTE | 2018-04-24 22:38 | NUR ---
NICOLA HELLER AND I ASSISTED HUNTER LEO CLEANED AND APPLIED CREAM/POWDER AND PILLOW CASES ON PATIENT'S LOWER ABDOMINAL/SCROTAL AREA.
--- NOTE | 2018-04-24 23:09 | NUR ---
PATIENT IS RESTING IN BED WATCHING TV. PATIENT DENIES ANY NEEDS AT THIS TIME. CALL LIGHT IN REACH.
--- NOTE | 2018-04-25 00:46 | NUR ---
PATIENTS VITALS TAKEN AND RECORDED BY SALES AGENT FINANCIAL REPORT SERVICE. PATIENT GIVEN SHCEDULED MEDICATION PER ORDER. RT CALLED TO PLACE PATIENT ON CPAP. NO FURTHER NEEDS NOTED. CALL LIGHT IN REACH.
--- NOTE | 2018-04-25 02:15 | NUR ---
PATIENT IS RESTING IN BED WITH EYES CLOSED CPAP IN PLACE. RR 20. CALL LIGHTIN REACH.
--- NOTE | 2018-04-25 04:22 | NUR ---
PATIENT CONTINUES TO REST IN BED WITH EYES CLOSED, RR 19. CPAP IN PLACE.
--- NOTE | 2018-04-25 04:53 | NUR ---
PATIENT RESTED WELL FOR THE GREATER PART OF THE SHIFT. PATIENT WORE CPAPC WHILE ASLEEP. PATIENT IS ON A CARDIAC DIET AND 1600ML FLUID RESTRICTION. PATIENT IS ON 2L VIA NC. PATIENT IS WORKING WITH PT. PATIENT IS ON TELE #8, IRREGULAR HEART RHYTHM, HR IN THE 80-90'S. PATIENT IS A 1-2PA W/FWW. PATIENT IS AAOX3.
--- NOTE | 2018-04-25 06:34 | NUR ---
PATIENTS VITALS TAKEN AND RECORDED. PATIENT ASSISTED TO ISE THE URINAL. PATIENTS DAILY WEIGHT TAKEN AND RECORDED. STORAGE AND BACKUP ADMINISTRATOR ASSISTED WITH ABOVE ACTIVITY. PATIENT IS NOW ON 1L VIA NC. PATIENT IS BACK IN BED RESTING. PATIENTS SCROTAL AREA CLEANED AND CREAMS AND POWDERS APPLIED PER ORDER. PATIENTS MORNING MEDICATIONS GIVEN PER ORDER. PATIENT DENIES ANY FURTHER NEEDS CALL LIGHT IN REACH.
--- NOTE | 2018-04-25 08:30 | NUR ---
PATIENT SITTING UP IN BED. WASHCLOTH PROVIDED TO WASH FACE AND HANDS. PATIENT REFUSED ALL OTHER AM CARE. CALL LIGHT IN REACH. PATIENT HAS NO FURTHER NEEDS AT THIS TIME.
--- NOTE | 2018-04-25 11:00 | NUR ---
PT IN ANTONETTE BED, NO DISTRESS. PT HAS MULTIPLE PILLOWCASES TO PANIS AND GROIN WITH ADDITIONAL ABSORBENT PADDING IN PLACE. PENIS IS NOT VISUALIZED DUE TO SCROTAL EDEMA. PT URINATED WITH NURSE ASSIST AND URINAL, SIGNIFICANT SPILLING DUE TO ANATOMY AND SWELLING. KATHARINE CARE AND NEW PILLOWCASES/PADDING PUT IN PLACE. TELE IN PLACE, DENIES SOB. 5 MINUTES AFTER URINATION, PT REQUESTED TO URINATE AGAIN, WITH RESEARCH ENVIRONMENTAL SCIENTIST ASSIST. WILL CONTINUE TO MONITOR.
--- NOTE | 2018-04-25 11:18 | NUR ---
PT RESTING IN BED, ALERT AND ORIENTED. HE SEEMED IN MUCH BETTER SPIRITS TODAY, AND MENTIONED THAT HE GOT THE INFO HE NEEDED ON THE NEW MED HE WAS GIVEN. I HAD A PLEASANT VISIT, EXTENDED A BLESSING AND HE THANKED ME
[2018-04-25] MEDS ORDERED: DIFLUCAN100 MG PO (11:49)
[2018-04-25] MEDS ORDERED: ELIQUIS5 MG PO (11:49)
[2018-04-25] MEDS ORDERED: METOPROLOL SUC200 MG PO (11:49)
[2018-04-25] MEDS ORDERED: MAGOX 400400 MG PO (11:50)
[2018-04-25] MEDS ORDERED: KLOR-CON M2020 MEQ PO (11:50)
[2018-04-25] MEDS ORDERED: DILTIAZEM ER300 MG PO (11:50)
[2018-04-25] MEDS ORDERED: TORSEMIDE20 MG PO (11:51)
[2018-04-25] MEDS ORDERED: SWEEN CREAM85 GM TOP (11:51)
[2018-04-25] MEDS ORDERED: NYSTOP60 GM TOP (11:51)
--- NOTE | 2018-04-25 12:33 | NUR ---
PT HAD LUNCH AND IS RESTING IN BED. TOTAL CHANGE ON PILLOW CASES AND KAHTARINE CARE PER EACH URINATION. PT HAS HAD NO CHANGES IN CONDITION, WILL CONTINUE TO MONITOR.
--- NOTE | 2018-04-25 13:00 | NUR ---
PATIENT UP TO BATHROOM FROM BED WITH 2 PERSON ASSIST WITH FWW. LINENS CHANGED.
--- NOTE | 2018-04-25 15:54 | NUR ---
CARE CONFERENCE TALKED WITH PT REGARDING HIS PLAN OF CARE FOR DC, STATES HE IS RETURNING HOME AND THAT HE HAS ENOUGH HELP AT HOME. HE ALSO SAYS HE WILL BE USING HIS O2 THAT WAS ORDERED. HE IS HAPPY TO HAVE A FRONT WHEELED WALKER ORDERED FROM [facility] WHERE HE IS GETTING HIS O2 THROUGH.
--- NOTE | 2018-04-25 15:56 | NUR ---
FAXED CHART NOTES INCLUDING FACESHEET, ORDER, ER NOTES, H AND P, PROG NOTES, PT NOTES. TALKED TO SHERRI ABOUT THIS THE PT WILL NEED A BARIATRIC FRONT WHEELED WALKER PT IS 454.4 LBS AND 5'5" TALL. THIS INFORMATION WAS SHARRED WITH IN HOME [facility]. THEY STATED THEY WOULD DELIVER IT BEFORE DC TOMORROW. RECIEVED FAX CONFIRMATION.
--- NOTE | 2018-04-25 16:38 | NUR ---
PT RESTING AT BEDSIDE AND UP TO CHAIR THIS AFTERNOON. UP TO BATHROOM WITH 2 PERSON ASSIST WITH FWW. NO CHANGE IN CONDITION, WILL CONTINUE TO MONITOR.
--- NOTE | 2018-04-25 16:58 | NUR ---
PATIENT UP TO BATHROOM FROM CHAIR 2 PERSON ASSIST FWW. PATIENT NOW BACK TO CHAIR. CALL LIGHT IN REACH. NO FURTHER NEEDS AT THIS TIME.
--- NOTE | 2018-04-25 17:42 | NUR ---
PAITENT UP IN CHAIR. VITALS AND I&O TAKEN AND CHARTED. CALL LIGHT IN REACH. NO FURTHER NEEDS AT THIS TIME.
--- NOTE | 2018-04-25 18:19 | NUR ---
PT STATES HE IS IMPROVED FROM YESTERDAY. PT HAS SIGNIFICANT SCROTAL EDEMA, AND USES URINAL WITH ASSIST ONLY. PENIS IS NOT VISUALIZED, PADDING APPLIED TO SCROTUM AND PANIS FOR ABSORBANCY. PILLOWCASES AND OINTMENT WITH NYSTATIN POWDER APPLIED WITH EACH URINAL USE. PT DENIES SOB, UP WITH 2 ASSIST AND FWW. PT UP TO CHAIR, USING ANTONETTE BED, 2L NC CONSISTENTLY THROUGHOUT SHIFT.
--- NOTE | 2018-04-25 18:33 | NUR ---
PATIENT UP FROM CHAIR TO BED 2 PERSON ASSIST FWW. CLEAN PILLOWCASES PLACED IN FOLDS AROUND GROIN AREA. PATIENT IS SITTING UP IN BED AT THIS TIME. CALL LIGHT IN REACH. NO FURTHER NEEDS AT THIS TIME.
--- NOTE | 2018-04-25 20:51 | NUR ---
coop with assessment, continues on fluid restriction of 1600 cc/24h
--- NOTE | 2018-04-25 23:26 | NUR ---
RESTING, CPAP IN PLACE, NO REQUESTS
--- NOTE | 2018-04-26 04:48 | NUR ---
skin care to rupa area done. Scrotum edematous, no c/o pain. CPCP in place. call light at hands reach
--- NOTE | 2018-04-26 05:37 | NUR ---
PT HAS SLEPT THIS SHIFT. CPAP IN PLACE, O2 1L NC WHEN AWAKE. NO C/O SOB OR RESPIRATORY DISTRESS. ON BARIATRIC BED. PT IS A DAILY WEIGHT. USES URINAL, VOIDING DARK YELLOW URINE, SCROTUM VERY EDEMATOUS AND REDDISH, GOOD KATHARINE CARE DONE AFTER EACH VOIDING DUE TO DRIBBLING. REDNESS BETWEEN SKIN FOLDS PRESENT. A&D CREAM,NYASTATIN POWDER AND CREAM APPLIED, TO FOLDS BETWEEN BREASTS, ABD AND KATHARINE/INGUINAL AREA. EDEMATOUS LEGS. WEAK GAIT, REQUIRES 1-2 PA AND FWW. COOPERATIVE, NO C/O APIN THIS SHIFT. PT STATED THAT HE IS GOING HOME TODAY. TURNS SELF IN BED AND USES CALL LIGHT APPROPRIATELY. SL INTACT.
--- NOTE | 2018-04-26 08:32 | NUR ---
PT SITTING UP TO CHAIR, STATES THAT HE FEELS BETTER TODAY. DENIES PAIN, SOB, USING 1LNC. ORDERED BREAKFAST. PT PANNIS AND SCROTUM IS CUSHIONED BY PILLOW CASES AND ADDITIONAL PADDING. WILL CONTINUE TO MONITOR.
--- NOTE | 2018-04-26 11:43 | NUR ---
.PT SHOWERED WITH SPRINKLING SYSTEM IRRIGATOR, KATHARINE CARE AND OINTMENTS AND POWDERS APPLIED. PT IS DRESSED. STILL FOLLOWING FLUID RESTRICTION. PT DENIES PAIN. EDUCATED PT ON KATHARINE CARE FOR DISCHARGE THIS AFTERNOON. PT DEMONSTRATED UNDERSTANDING. PT UP TO CHAIR FOR LUNCH, HAS NO ADDITIONAL CONCERNS. WILL CONTINUE TO MONITOR.
--- NOTE | 2018-04-26 12:01 | NUR ---
HELPED PATIENT WITH HIS SHOWER AND ALSO HE GOT DRESSED AND HELPED THE NURSE WHILE SHE WAS APPLYING THE POWERED AND CREAMS. NOW HE IS SITTING IN HIS CHAIR EATING HIS LUNCH.
--- NOTE | 2018-04-26 13:31 | NUR ---
TOOK PATIENT'S IV OUT AND DID HIS VITAL SIGNS.
--- NOTE | 2018-04-26 13:37 | NUR ---
PT SITTING IN CHAIR, DRESSED AND PREPARING FOR DC. PT THANKED ME FOR VISITING, AND ALL THE HELP HE HAS RECIEVED AT [facility]. I EXTENDED A BLESSING-WILL FOLLOW NEEDED
--- NOTE | 2018-04-30 09:51 | NUR ---
CHW received CHW referral to follow up with patient after discharge from hospital on 04/25. CHW called patient phone referenced on CHW referral and left a voicemail.
--- NOTE | 2018-04-30 13:47 | NUR ---
Heart failure follow up call- Patient states it is not a good time to talk. He states he does have his medications as ordered and has transportation to Dr. Moreno appointment on 05/03. Gave brief information on heart failure management education offerings and encouraged patient to call this service to schedule a no charge visit.
--- NOTE | 2018-05-01 12:41 | NUR ---
CHW received referral from Case Management when patient was discharged from the hospital. CHW tried to contact patient 3x and left messages. CHW was able to contact patient on 05/01/18 @ 12:30pm. Patient stated he is going to be following up with his PCP this week and does not feel that he needs any further assistance/ or help. CHW provided a good contact number if an issue were to arise. Patient stated he would call if he needed any further assistance with community resources. CHW also recommended to patient to follow up with [facility] and patient stated he has been in contact with [facility] and at this time is not wanting to accept help.
== END 2018-04-26 14:45 | disposition home or self-care (01) | DRG 291 ==
LOC: ED 16:00 → CCU 21:04 → MS 04-22 19:30
PROVIDERS: ADMIT Internal Medicine
PROC: 5A09357 Assistance with Respiratory Ventilation, Less than 24 Consecutive Hours, Continuous Positive Airway Pressure (ICD-10-PCS; principal; 2018-04-22)
DX: I11.0 Hypertensive heart disease with heart failure (principal); J96.21 Acute and chronic respiratory failure with hypoxia; Z68.45 Body mass index [BMI] 70 or greater, adult; I50.33 Acute on chronic diastolic (congestive) heart failure; I48.91 Unspecified atrial fibrillation; B37.2 Candidiasis of skin and nail; F43.21 Adjustment disorder with depressed mood; G47.33 Obstructive sleep apnea (adult) (pediatric); E66.01 Morbid (severe) obesity due to excess calories; Z88.7 Allergy status to serum and vaccine; Z79.02 Long term (current) use of antithrombotics/antiplatelets; Z79.899 Other long term (current) drug therapy
CPT/HCPCS: 36415; 71045; 80048; 80053; 83735; 83880; 84484; 85025; 85610; 85730; 93005; 93010; 94660; 94760; 94761; 96374; 96375; 97110; 97116; 97163; 99285; G8978; G8979

== ENCOUNTER 2018-09-13 22:26 | Inpatient (IN) | payer BC ==
[~2018-09-13] VITALS: Ht 165.1 cm; Wt 215.2 kg
[~2018-09-13 22:26] MED LIST changes: +CARTIA XT120 MG PO; +DIFLUCAN100 MG PO; +DILTIAZEM ER300 MG PO; +DILTIAZEM ER420 MG PO; +DULOXETINE HCL60 MG PO; +MAGOX 400400 MG PO; +METOLAZONE5 MG PO; +NYSTATIN15 G2 TOP; +SWEEN CREAM85 GM TOP
--- OUTSIDE RECORDS SUMMARY | 2018-09-13 22:32 | XMS ---
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 Care History Medical/Surgical 07/18/2018 [facility] IF SEEN IN ED AND NEEDS INPATIENT ADMISSION:\T\nbsp; PATIENT NEEDS TO BE TRANSFERRED TO A FACILITY THAT HAS A BARIATRIC SPECIALTY UNIT .\T\nbsp; THIS PATIENTS WEIGHT IS NOW HIGHER THAN OUR EQUIPMENT CAN TOLERATE SAFELY. 05/16/2018 [facility] HISTORY: AFIB/ CHF/ HTN/ OBS SLEEP APNEA/ MORBID OBESITY 04/30/2018 [facility] - Patient is currently established with [facility]. If patient is seen in the ED during business hours. Please contact CHWs at [facility]. Care Recommendation: This patient has had 5 or more Emergency Department visits in the last 12 months.\T\nbsp; Patient requires education on the scope and purpose of the ED as an acute care provider not a Primary Care Provider and should not be utilized for chronic conditions.\T\nbsp; These are guidelines and the provider should exercise clinical judgment when providing care. ERobeD. VISIT COUNT (12 MO.) 4 [facility] TOTAL 4 NOTE: Visits indicate total known visits. ED/UCC VISIT TRACKING (12 MO.) 09/13/2018 22:27 [facility] TYPE: Emergency COMPLAINT: - MULTIPLE COMPLAINTS 07/03/2018 00:00 [facility] TYPE: Emergency COMPLAINT: - WEAKNESS 04/21/2018 16:00 [facility] TYPE: Emergency COMPLAINT: - SWOLLEN GROIN 11/04/2017 15:42 [facility] TYPE: Emergency COMPLAINT: - DIZZINESS DIAGNOSES: - Unspecified atrial fibrillation - Allergy status to serum and vaccine status - Dizziness and giddiness - Other long term care administrator (current) drug therapy - Labyrinthitis, unspecified ear - Morbid (severe) obesity due to excess calories - Essential (primary) hypertension INPATIENT VISIT TRACKING (12 MO.) 07/03/2018 09:[address] [facility] TYPE: Medical Surgical COMPLAINT: - GENERALIZED WEAKNESS DIAGNOSES: - Chronic atrial fibrillation - Acute on chronic diastolic (congestive) heart failure - Dependence on supplemental oxygen - Hypertensive heart disease with heart failure - Chronic respiratory failure with hypoxia - Dependence on supplemental oxygen - Rhabdomyolysis - Morbid (severe) obesity due to excess calories - Chronic respiratory failure with hypoxia - Acute kidney failure, unspecified - Acute diastolic (congestive) heart failure - Unspecified fall, initial encounter - Chronic atrial fibrillation - Acute on chronic diastolic (congestive) heart failure - Poisoning by propionic acid derivatives, accidental (unintentional), initial encounter - Hypertensive heart disease with heart failure - Acute kidney failure, unspecified - Rhabdomyolysis - Poisoning by propionic acid derivatives, accidental (unintentional), initial encounter - Unspecified fall, initial encounter - Morbid (severe) obesity due to excess calories [email or web address]
[2018-09-14] MEDS ORDERED: DILTIAZEM ER300 MG PO (10:48)
[2018-09-14] MEDS ORDERED: DILANTIN100 MG PO (12:45)
--- NOTE | 2018-09-15 07:48 | EKG ---
[facility] [address] [facility] [place] [address] Signed Undetermined rhythm Right bundle branch block Septal infarct , age undetermined T wave abnormality, consider inferolateral ischemia Abnormal ECG When compared with ECG of 03-JUL-2018 00:40, Current undetermined rhythm precludes rhythm comparison, needs review Septal infarct is now present T wave inversion now evident in Lateral leads Confirmed by REYNALDO MARES MD ([id number] on 09/15/2018 7:48:23 AM Electronically Signed By: REYNALDO MARES MD 09/15/18 0748 PATIENT NAME: EMELY GARCIA Electrocardiogram DATE OF : 62 PHYSICIAN: RYENALDO MARES MD REPORT #: [id number] REPORT IS CONFIDENTIAL AND NOT TO BE RELEASED WITHOUT AUTHORIZATION
[2018-09-17] MEDS ORDERED: CEFTRIAXONE1 G1 IV (09:53)
[2018-09-17] MEDS ORDERED: METOPROLOL TART50 MG PO (09:54)
[2018-09-17] MEDS ORDERED: CATHFLO ACTIVASE2 MG IV (09:54)
[2018-09-17] MEDS ORDERED: MAPAP325 MG PO (09:54)
[2018-09-17] MEDS ORDERED: NYSTOP60 GM TOP (09:57)
[2018-09-17] MEDS ORDERED: PANTOPRAZOLE SO40 MG PO (09:57)
== END 2018-09-17 13:15 | disposition short-term general hospital (02) | DRG 308 ==
LOC: ED 22:26 → CCU 09-14 02:00
PROVIDERS: ADMIT Internal Medicine
PROC: 5A09357 Assistance with Respiratory Ventilation, Less than 24 Consecutive Hours, Continuous Positive Airway Pressure (ICD-10-PCS; 2018-09-14)
PROC: 02HV33Z Insertion of Infusion Device into Superior Vena Cava, Percutaneous Approach (ICD-10-PCS; principal; 2018-09-14 14:15)
DX: I48.2 Chronic atrial fibrillation (principal); I50.33 Acute on chronic diastolic (congestive) heart failure; J96.11 Chronic respiratory failure with hypoxia; N17.9 Acute kidney failure, unspecified; Z68.45 Body mass index [BMI] 70 or greater, adult; I11.0 Hypertensive heart disease with heart failure; E66.01 Morbid (severe) obesity due to excess calories; G47.33 Obstructive sleep apnea (adult) (pediatric); E86.0 Dehydration; B35.4 Tinea corporis; R19.7 Diarrhea, unspecified; I89.0 Lymphedema, not elsewhere classified; Z79.02 Long term (current) use of antithrombotics/antiplatelets; Z79.899 Other long term (current) drug therapy; Z88.7 Allergy status to serum and vaccine; Z91.14 Patient's other noncompliance with medication regimen
CPT/HCPCS: 36415; 36569; 51703; 71045; 80048; 80053; 81001; 83735; 83880; 84484; 85025; 93005; 93010; 94660; 96361; 96374; 97163; 99285-25; C1751; J0696; J7030